=== PATIENT | female | born 1995 | race Caucasian/White ===

== ENCOUNTER 2020-07-11 09:27 | Emergency (ER) | payer MEDICAID, SELFPAY ==
[~2020-07-11] VITALS: Ht 170.2 cm; Wt 84.4 kg
[2020-07-11 09:52] VITALS: BP 156/78; Ht 170.2 cm; Wt 84.4 kg
== END 2020-07-11 11:15 | disposition home or self-care (01) ==
LOC: ED 09:27
DX: R09.89 Other specified symptoms and signs involving the circulatory and respiratory systems (principal); R09.81 Nasal congestion; Z13.9 Encounter for screening, unspecified